=== PATIENT | male | born 1955 | race Caucasian/White ===

== ENCOUNTER 2022-02-17 18:22 | Emergency (ER) | payer OTHER ==
[~2022-02-17] VITALS: Ht 172.7 cm; Wt 77.1 kg
[2022-02-18] MEDS ORDERED: CEPHALEXIN500 MG PO (02:07)
[2022-02-18] MEDS ORDERED: NABUMETONE750 MG PO (02:07)
== END 2022-02-18 02:55 ==
LOC: ER 18:22
DX: S61.223A Laceration with foreign body of left middle finger without damage to nail, initial encounter (principal); W45.8XXA Other foreign body or object entering through skin, initial encounter; W22.8XXA Striking against or struck by other objects, initial encounter; Y93.9 Activity, unspecified; Y92.019 Unspecified place in single-family (private) house as the place of occurrence of the external cause; S63.293A Dislocation of distal interphalangeal joint of left middle finger, initial encounter